=== PATIENT | male | born 1970 | race Caucasian/White ===

== ENCOUNTER 2017-04-01 00:01 | Outpatient (RCR) | payer MEDICARE, MEDICAID, SELFPAY ==
[2013-03-12 10:44] VITALS: BP 132/87
[~2017-04-01 00:01] MED LIST: ARIP15TA2 PO; DIVA500T35 PO; VENL-193 PO
== END 2017-04-30 | disposition home or self-care (01) ==
LOC: IOPBV 00:01
PROVIDERS: ATTEND Psychiatry & Neurology Psychiatry
DX: F25.1 Schizoaffective disorder, depressive type (principal)
CPT/HCPCS: 90853